=== PATIENT | female | born 1960 | race Caucasian/White ===

== ENCOUNTER 2017-12-10 06:46 | Outpatient (CLI) | payer BC ==
[~2017-12-10] VITALS: Ht 157.5 cm; Wt 114.3 kg
[2017-12-10] MEDS ORDERED: CALC600T12 PO (12:31)
[2017-12-10] MEDS ORDERED: FERR-84 PO (12:31)
[2017-12-10] MEDS ORDERED: ATOR20TA66 PO (12:31)
[2017-12-10] MEDS ORDERED: CITA20TA9 PO (12:31)
[2017-12-10] MEDS ORDERED: HYDR25TA4 PO (12:31)
[2017-12-10] MEDS ORDERED: OMEP40CA36 PO (12:31)
== END 2017-12-10 12:34 | disposition home or self-care (01) ==
LOC: PREOP 06:46
PROVIDERS: ATTEND Internal Medicine
DX: Z01.818 Encounter for other preprocedural examination (principal)

== ENCOUNTER 2017-12-12 09:12 | Day surgery (SDC) | payer BC ==
--- NOTE | 2017-12-10 05:02 | HISTORY AND PHYSICAL ---
DATE OF SERVICE: COLONOSCOPY HISTORY AND PHYSICAL DATE OF ADMISSION: 12/12/2017. HISTORY OF PRESENT ILLNESS: The patient is a 56-year-old white female referred by Dr. Marina for her first screening colonoscopy. She believes that she had one grandfather diagnosed with the colon cancer at the age of 67 and possibly one aunt with colon cancer as well on her father's side. She reports that she feels well. She has had no bowel habit change. Denies abdominal pain, bright red blood per rectum, melena, dysphagia or indigestion symptoms. PAST MEDICAL HISTORY: Significant for hyperlipidemia, hypertension, gastroesophageal reflux and depression. MEDICATIONS ON ADMISSION: Include omeprazole 40 mg daily, atorvastatin 20 mg daily, citalopram 20 mg daily and hydrochlorothiazide 25 mg daily. She takes 325 mg iron tab daily and calcium citrate daily. PAST SURGICAL HISTORY: Significant for two C-sections. She had cholecystectomy around 1999 and following that had ventral hernia repair. FAMILY HISTORY: As noted in the HPI. SOCIAL HISTORY: She is employed with no past smoking or drinking history. PHYSICAL EXAMINATION: GENERAL: Reveals a well-appearing white female in no acute distress. She is 252 pounds and roughly 5 feet 6 inches tall. VITAL SIGNS: Blood pressure 110/80, heart rate 72 and regular. HEENT: Unremarkable. Sclerae are nonicteric. Oral cavity reveals a Mallampati class 3 oropharyngeal configuration without erythema or exudate. NECK: Revealed no JVD, adenopathy or bruits. CHEST: Clear to auscultation. CARDIOVASCULAR: Reveals a regular rate and rhythm without murmur, S3 or S4. ABDOMEN: Soft, supple without mass, organomegaly or tenderness although body habitus diminishes sensitivity of manual examination. Bowel sounds are positive. No bruits are noted. EXTREMITIES: Reveal no cyanosis, clubbing or edema. ASSESSMENT: The patient was set up for screening colonoscopy on 12/12/2017. Prep instructions with Suprep kit were given and questions were answered. I thank you for the referral of this pleasant lady. In evaluating electronic medical record, 40 minutes of my personal care time was spent and another 15 minutes of office staff time going over the procedure. Prep instructions and setting up colonoscopy. Job ID: [id number] DocumentID: [id number] Dictated Date: 12/09/2017 12:11:30 Field Services Director Date: 12/09/2017 12:33:27 Dictated By: CHELA IRIZARRY MD MTDD
[~2017-12-12] VITALS: Ht 157.5 cm; Wt 114.3 kg
[~2017-12-12 09:12] MED LIST: ATOR20TA66 PO; CALC600T12 PO; CITA20TA9 PO; FERR-84 PO; HYDR25TA4 PO; OMEP40CA36 PO
--- OUTSIDE RECORDS SUMMARY | 2017-12-12 09:15 | XMS REPORT | Continuity of Care Document ---
Author Author [facility] Organization [facility] Address Unknown Phone Unavailable Allergies There is no data. Medications There is no data. Problems Date Dx Coded Attending Type Code Diagnosis Diagnosed By 12/15/2014 Ot 611.72 12/15/2014 Ot V76.12 12/15/2014 Ot 610.1 12/15/2014 Ot 433.10 12/15/2014 FRANKY CLEANING MD, Ot V76.12 12/15/2014 FRANKY CLEANING MD, Ot 793.80 12/19/2014 FRANKY CLEANING MD, Ot Z12.31 12/19/2014 FRANKY CLEANING MD, Ot Z13.820 12/27/2014 FRANKY CLEANING MD, Ot Z12.31 12/27/2014 FRANKY CLEANING MD, Ot Z13.820 2015 Ot 433.10 CAROTID ARTERY OCCLUSION W O CEREBRAL IN 2015 FRANKY CLEANING MD, Ot V76.12 OTH SCREEN MAMMO-MALIGN NEOPLASM OF HANH 2015 FRANKY CLEANING MD, Ot 793.80 UNSPEC ABNORMAL MAMMOGRAM 2015 FRANKY CLEANING MD, Ot Z12.31 ENCNTR SCREEN MAMMOGRAM FOR MALIGNANT NE 2015 FRANKY CLEANING MD, Ot Z13.820 ENCOUNTER FOR SCREENING FOR OSTEOPOROSIS 12/19/2015 FRANKY CLEANING MD, Ot Z12.31 ENCNTR SCREEN MAMMOGRAM FOR MALIGNANT NE 12/20/2015 FRANKY CLEANING MD, Ot Z12.31 ENCNTR SCREEN MAMMOGRAM FOR MALIGNANT NE 12/27/2015 FRANKY CLEANING MD, Ot Z12.31 ENCNTR SCREEN MAMMOGRAM FOR MALIGNANT NE 01/17/2017 FRANKY CLEANING MD, Ot Z12.31 ENCNTR SCREEN MAMMOGRAM FOR MALIGNANT NE 01/17/2017 FRANKY CLEANING MD, Ot Z78.0 ASYMPTOMATIC MENOPAUSAL STATE Procedures There is no data. Results There is no data. Encounters ACCT No. Visit Date/Time Discharge Status Pt. Type Provider Facility Loc./Unit Complaint [id number] 01/02/2017 08:08:00 01/02/2017 23:59:59 CLS Outpatient FRANKY CLEANING MD [facility] RAD SCREENING Z78.0 [id number] 11/18/2016 15:49:00 11/18/2016 23:59:59 CLS Preadmit FRANKY CLEANING MD [facility] RAD Z78.0 [id number] 2015 07:32:00 2015 23:59:59 CLS Outpatient FRANKY CLEANING MD [facility] RAD SCREENING [id number] 12/15/2014 08:58:00 12/15/2014 23:59:59 CLS Outpatient FRANKY CLEANING MD [facility] RAD SCREENING,OSTEOPROSIS [id number] 10/07/2012 13:23:00 10/07/2012 23:59:59 CLS Outpatient FRANKY CLEANING MD [facility] RAD ABN MAMMO [id number] 09/25/2012 09:24:00 09/25/2012 23:59:59 CLS Outpatient FRANKY CLEANING MD [facility] RAD SCREENING [id number] 01/05/2018 09:00:00 PEN Preadmit JAD RIVERA APRN [facility] RAD SCREENING [id number] 12/12/2017 11:00:00 PEN Preadmit CHELA IRIZARRY MD [facility] ENDO SCREENING [id number] 05/09/2011 15:12:00 Document Registration [id number] 11/01/2009 09:02:00 Document Registration [id number] 10/31/2009 07:11:00 Document Registration
[2017-12-12] MEDS ORDERED: D5 LR IV SOLUTION 1,000 ML IV STA (09:28)
[2017-12-12] MEDS ORDERED: D5 LR IV SOLUTION 1,000 ML IV ONE (09:29)
[2017-12-12] MEDS ORDERED: fentaNYL INJECTION 100 MCG/2 ML AMP IVP ONE (09:30)
[2017-12-12] MEDS ORDERED: LIDOCAINE JELLY 2% 6 ML SYRINGE MM PRN (09:30)
[2017-12-12] MEDS ORDERED: MIDAZOLAM 2 MG/2 ML (VERSED) VIAL IVP ONE (09:30)
[2017-12-12 10:03] VITALS: BP 130/66
--- NOTE | 2017-12-12 10:19 | Pre-Op Note & Conscious Sedat ---
Pre-Operative Progress Note H&P Reviewed The H&P was reviewed, patient examined and no changes noted. Date H&P Reviewed: Dec 12, 2017 Time H&P Reviewed: 10:10 Conscious Sedation Pre-Proced ASA Score 2 For ASA 3 and 4: Consider anesthesia and medical clearance. Also, for patients with a history of failed moderate sedation consider anesthesia. Airway Lungs Heart ASA score ASA 1: a normal healthy patient ASA 2: a patient with a mild systemic disease (mid diabetes, controlled hypertension, obesity ASA 3: a patient with a severe systemic disease that limits activity (angina , COPD, prior Myocardial infarction) ASA 4: a patient with an incapacitating disease that is a constant threat to life (CHF, renal failure) ASA 5: a moribund patient not expected to survive 24 hrs. (ruptured aneurysm) ASA 6: a declared brain patient whose organs are being harvested. For emergent operations, add the letter E after the classification Mallampati Classification Grade 3 Sedation Plan Analgesia, Amnesia, Plan communicated to team members, Discussed options with patient/fam, Discussed risks with patient/fam The patient is an appropriate candidate to undergo the planned procedure, sedation, and anesthesia. The patient immediately re-assessed prior to indication. CHELA IRIZARRY MD Dec 12, 2017 10:19
[2017-12-12] MEDS ORDERED: LIDOCAINE JELLY 2% 6 ML SYRINGE ONE (10:21)
[2017-12-12] MEDS ORDERED: fentaNYL INJECTION 100 MCG/2 ML AMP ONE (10:21)
[2017-12-12] MEDS ORDERED: MIDAZOLAM 2 MG/2 ML (VERSED) VIAL ONE ×2 (10:22)
[2017-12-12 11:05] VITALS: BP 103/59
[2017-12-12 11:35] VITALS: BP 106/62
[2017-12-12 11:45] VITALS: BP 106/62
--- NOTE | 2017-12-12 18:00 | OPERATIVE REPORT ---
DATE OF SERVICE: COLONOSCOPY SUMMARY REFERRING PHYSICIAN: Anup Marina MD. The patient was placed in the left lateral decubitus position. Prior to undergoing colonoscopy, digital rectal evaluation was performed. Anal sphincter tone was normal and the perianal reflexes intact. Digital examination was compatible with an anterior rectocele. There is no pocketing of stool and no other abnormalities, no additional inspection of the anal canal or distal rectal vault. The colonoscope was then inserted into the rectum and under direct visualization advanced to the cecum. The cecum was identified by identification of the ileocecal valve and cecal strap. Photographic documentation was obtained. Careful inspection was made as the colonoscope was withdrawn. The patient tolerated the procedure well. FINDINGS: There was no evidence for internal or external hemorrhoids. Several small 1 mm hyperplastic appearing polyps were noted in the rectum. The largest most outside sales account representative one was biopsied and ablated and submitted for histopathology. Remainder of the rectum was unremarkable. Several small sigmoid diverticulum were present without evidence of diverticulitis. No other sigmoid colonic abnormalities were appreciated. The descending colon, splenic flexure, transverse colon, hepatic flexure, ascending colon and cecum were unremarkable. ASSESSMENT: 1. Mild diverticular disease involving the sigmoid colon was present without evidence for diverticulitis. 2. One diminutive hyperplastic appearing polyp was removed from the distal rectum. Considering family history would advocate consideration for repeat screening colonoscopy in 5 years. 3. Digital evaluation of the rectum was compatible with an anterior rectocele. Thank you for the referral of this pleasant lady. Job ID: [id number] DocumentID: [id number] Dictated Date: 12/12/2017 11:02:23 Store Person Date: 12/12/2017 17:59:57 Dictated By: CHELA IRIZARRY MD MTDD
== END 2017-12-12 11:45 | disposition home or self-care (01) ==
LOC: ENDO 09:12
PROVIDERS: ATTEND Internal Medicine
DX: Z12.11 Encounter for screening for malignant neoplasm of colon (principal); K62.1 Rectal polyp; K57.30 Diverticulosis of large intestine without perforation or abscess without bleeding; Z80.0 Family history of malignant neoplasm of digestive organs; I10 Essential (primary) hypertension; K21.9 Gastro-esophageal reflux disease without esophagitis; Z79.899 Other long term (current) drug therapy
CPT/HCPCS: 88305

== ENCOUNTER → 2018-01-05 | Outpatient (CLI) | payer BC ==
--- NOTE | 2018-01-05 09:28 | Diagnostic Imaging Report ---
Indication: Routine screening. Comparison is made with prior mammogram from 01/02/2017 and 12/18/2015. 2-D and 3-D bilateral screening mammography was performed with CAD. Both breasts are heterogeneously dense, limiting the sensitivity of mammography. Nodular densities in the outer right breast appear stable and consistent with benign etiologies. No dominant mass or malignant-appearing microcalcifications are seen. The axillae are unremarkable. Impression: BI-RADS category 2 No mammographic features suspicious for malignancy are identified. ACR BI-RADS Category 2: Benign findings. Result letter will be mailed to the patient. Note: At least 10% of breast cancer is not imaged by mammography. Dictated by: Dictated on workstation # [id number]
== END ==
LOC: RAD 08:44
PROVIDERS: ATTEND Nurse Practitioner Family
DX: Z12.31 Encounter for screening mammogram for malignant neoplasm of breast (principal)
CPT/HCPCS: 77067

== ENCOUNTER → 2019-01-19 | Outpatient (CLI) | payer BC ==
--- NOTE | 2019-01-19 09:07 | Diagnostic Imaging Report ---
INDICATION: Postmenopausal female. COMPARISON: 01/02/2017. FINDINGS: AP Spine L2-L4: [BMD (g/cm2): 1.199] [T-Score: 0.0] [Z-Score: -0.3] [BMD Previous: 1.285] [BMD % Change: -6.7] LT Hip Neck: [BMD (g/cm2): 0.843] [T-Score: -1.4] [Z-Score: -1.1] LT Hip Total: [BMD (g/cm2):0.910] [T-Score:-0.8] [Z-Score: -0.9] [BMD Previous: 0.913] [BMD % Change: -0.3] RT Hip Neck: [BMD (g/cm2):0.774] [T-Score:-1.9] [Z-Score:-1.6] RT Hip Total: [BMD (g/cm2):0.888] [T-score:-0.9] [Z-Score:-1.1] [BMD Previous:0.894] [BMD % Change:-0.7] *Indicates significant change from prior examination based on 95% confidence level. World Health Organization criteria for BMD interpretation classify patients as Normal (T-score at or above -1.0), Osteopenic (T-score between -1.0 and -2.5) or Osteoporotic (T-score at or below -2.5). LIMITATIONS AND MODIFICATION: Degenerative changes in the lumbar spine may falsely elevate bone density. FRACTURE RISK (FRAX SCORE): The ten year probability of (%): Major Osteoporotic Fracture: [6.6] Hip Fracture: [0.7] IMPRESSION: 1. Osteopenia (Low bone mass). 2. No statistically significant change in bone mineral density since prior examination. 3. See below National Osteoporosis Foundation guidelines on when to potentially initiate pharmacologic therapy. Based on the National Osteoporosis Foundation Guidelines, pharmacologic treatment should be initiated in any of the following, unless clinical conditions suggest otherwise: * Any patient with prior fragility fracture of the hip or vertebrae. A spine fracture indicates 5X risk for subsequent spine fracture and 2X risk for subsequent hip fracture. * Osteoporosis (T-score <-2.5). * Postmenopausal women and men age 50 and older with low bone mass/osteopenia (T-score between -1.0 and -2.5) by DXA and 10-year major osteoporotic fracture greater than 20% or a 10-year probability of hip fracture greater than 3%. These fracture risks are supplied above in the FRAX score, if applicable. * Clinician judgement and/or patient preferences may indicate treatment for people with 10-year fracture probabilities above or below these levels. Dictated by: Dictated on workstation # [id number]
--- NOTE | 2019-01-19 10:58 | Diagnostic Imaging Report ---
EXAMINATION: Digital mammogram INDICATION: Bilateral screening This study was compared to the prior exams of 01/05/2018, 01/02/2017 and 12/18/2015. At this time there are no current complaints. The current study was also evaluated with a Computer Aided Detection (CAD) system. FINDINGS: The fibroglandular tissue in both breasts is heterogeneously dense. This does limit the sensitivity of this exam. Overall, there does not appear to have been any significant change when compared to the prior study. No primary or secondary sign of malignancy is noted. IMPRESSION: There is no radiographic evidence for malignancy. ACR BI-RADS Category 1: Negative. Result letter will be mailed to the patient. Note: At least 10% of breast cancer is not imaged by mammography. Dictated by: Dictated on workstation # [id number]
== END ==
LOC: RAD 07:40
PROVIDERS: ATTEND Obstetrics & Gynecology
DX: Z12.31 Encounter for screening mammogram for malignant neoplasm of breast (principal); M85.89 Other specified disorders of bone density and structure, multiple sites; Z78.0 Asymptomatic menopausal state
CPT/HCPCS: 77067; 77080

== ENCOUNTER → 2020-01-24 | Outpatient (CLI) | payer BC ==
[~2020-01-24] MED LIST changes: -CALC600T12 PO; +CLC600T PO; +OMEP40CA27 PO; -OMEP40CA36 PO
--- NOTE | 2020-01-24 11:35 | Diagnostic Imaging Report ---
INDICATION: Routine screening. Comparison is made with prior mammogram of 01/19/2019 and 01/05/2018. 2-D and 3-D bilateral screening mammography was performed with CAD. Both breasts are heterogeneously dense, limiting the sensitivity of mammography. There are circumscribed nodules in the outer right breast which appear stable. No spiculated mass or malignant appearing microcalcifications are seen. Axillae are unremarkable. IMPRESSION: BI-RADS Category 2 No mammographic features suspicious for malignancy identified. ACR BI-RADS Category 2: Benign findings. Result letter will be mailed to the patient. Note: At least 10% of breast cancer is not imaged by mammography. Dictated by: Dictated on workstation # [id number]
== END ==
LOC: RAD 07:30
PROVIDERS: ATTEND Obstetrics & Gynecology
DX: Z12.31 Encounter for screening mammogram for malignant neoplasm of breast (principal)
CPT/HCPCS: 77063; 77067

== ENCOUNTER → 2020-04-21 | Outpatient (CLI) | payer BC | LOC: LABNPT 08:27 | PROVIDERS: ATTEND Family Medicine | DX: Z20.822 Contact with and (suspected) exposure to COVID-19 (principal) | CPT/HCPCS: 87635 ==

== ENCOUNTER 2020-04-24 20:32 | Outpatient (CLI) | payer BC | END 2020-04-25 06:10 | disposition home or self-care (01) | LOC: SLEEP 20:32 | PROVIDERS: ATTEND Family Medicine | DX: G47.33 Obstructive sleep apnea (adult) (pediatric) (principal) | CPT/HCPCS: 95811 ==

== ENCOUNTER → 2020-07-18 | Outpatient (CLI) | payer BC ==
[~2020-07-18] MED LIST changes: +CALC600T91 PO; -CLC600T PO
--- NOTE | 2020-07-18 08:29 | Diagnostic Imaging Report ---
INDICATION: ELEVATED LIVER ENZYMES TECHNIQUE: Multiple grayscale sonographic images were obtained of the right upper quadrant of the abdomen. CORRELATION STUDY: None FINDINGS: LIVER: There is diffusely increased echotexture within the visualized portions of the liver. There is normal, hepatopedal direction of flow within the main portal vein. Liver length 15.1 cm. GALLBLADDER: Cholecystectomy. COMMON BILE DUCT: Nondilated at 0.9 cm. PANCREAS: Visualized portions appearing unremarkable. AORTA/IVC: Not well visualized. RIGHT KIDNEY: 11.2 x 5.0 x 5.0 cm. No hydronephrosis. OTHER: None. IMPRESSION: 1. Likely hepatic steatosis with normal-sized liver. 2. Post cholecystectomy changes. Dictated by: Dictated on workstation # [id number]
== END ==
LOC: RAD 07:00
PROVIDERS: ATTEND Family Medicine
DX: R94.5 Abnormal results of liver function studies (principal); Z90.49 Acquired absence of other specified parts of digestive tract
CPT/HCPCS: 76705

== ENCOUNTER → 2021-01-30 | Outpatient (CLI) | payer BC ==
[~2021-01-30] MED LIST changes: -OMEP40CA27 PO; +OMEP40CA6 PO
--- NOTE | 2021-01-30 08:52 | Diagnostic Imaging Report ---
INDICATION: Postmenopausal COMPARISON: This study was compared to the prior exam of 01/19/2019. FINDINGS: The bone density of the spine and hips and the femoral necks was measured. The total T score for the spine is -0.7. On the prior exam the T score is 0.0. The total T score for the left hip is -08 and for the right hip -0.7. On the prior exam the respective T scores were -0.8 and -0.9. The T score for the left femoral neck is -1.6 and for the right femoral neck -1.9. Previously the T score is -1.4 and -1.9. AP Spine L1-L4: [BMD (g/cm2): 1.113] [T-Score: -0.7] [Z-Score: -0.9] [BMD Previous: 1.199] [BMD % Change: -7.2] LT Hip Neck: [BMD (g/cm2): 0.814] [T-Score: -1.6] [Z-Score: -1.2] LT Hip Total: [BMD (g/cm2):0.904] [T-Score:-0.8] [Z-Score: -0.8] [BMD Previous: 0.910] [BMD % Change: -0.7] RT Hip Neck: [BMD (g/cm2):0.767] [T-Score:-1.9] [Z-Score:-1.6] RT Hip Total: [BMD (g/cm2):0.920] [T-score:-0.7] [Z-Score:-0.7] [BMD Previous:0.888] [BMD % Change:3.6] *Indicates significant change from prior examination based on 95% confidence level. World Health Organization criteria for BMD interpretation classify patients as Normal (T-score at or above -1.0), Osteopenic (T-score between -1.0 and -2.5) or Osteoporotic (T-score at or below -2.5). LIMITATIONS AND MODIFICATION: None. FRACTURE RISK (FRAX SCORE): The ten year probability of (%): Major Osteoporotic Fracture: [7.2] Hip Fracture: [0.8] IMPRESSION: 1. Overall, there has been no significant change since the prior exam. There has been a slight decrease in the bone mineral density of the spine and a slight increase in the bone mineral density of the right hip. All of the T score values remain within normal limits however. 2. There is still osteopenia of the femoral necks. This is essentially no different than on the prior study. 3. See below National Osteoporosis Foundation guidelines on when to potentially initiate pharmacologic therapy. Based on the National Osteoporosis Foundation Guidelines, pharmacologic treatment should be initiated in any of the following, unless clinical conditions suggest otherwise: * Any patient with prior fragility fracture of the hip or vertebrae. A spine fracture indicates 5X risk for subsequent spine fracture and 2X risk for subsequent hip fracture. * Osteoporosis (T-score <-2.5). * Postmenopausal women and men age 50 and older with low bone mass/osteopenia (T-score between -1.0 and -2.5) by DXA and 10-year major osteoporotic fracture greater than 20% or a 10-year probability of hip fracture greater than 3%. These fracture risks are supplied above in the FRAX score, if applicable. * Clinician judgement and/or patient preferences may indicate treatment for people with 10-year fracture probabilities above or below these levels. Dictated by: Dictated on workstation # [id number]
--- NOTE | 2021-01-30 12:53 | Diagnostic Imaging Report ---
INDICATION: Routine screening. COMPARISON: 01/24/2020 and 01/19/2019. TECHNIQUE: 2D and 3D bilateral screening mammography was performed with CAD. FINDINGS: Scattered fibroglandular densities are identified bilaterally. Benign nodules in the outer right breast are stable. No spiculated mass or malignant-appearing microcalcifications are seen. There are benign calcifications present. The axillae are unremarkable. IMPRESSION: No mammographic features suspicious for malignancy are identified. ACR BI-RADS Category 2: Benign findings. Result letter will be mailed to the patient. Note: At least 10% of breast cancer is not imaged by mammography. Dictated by: Dictated on workstation # [id number]
== END ==
LOC: RAD 08:00
PROVIDERS: ATTEND Obstetrics & Gynecology
DX: Z12.31 Encounter for screening mammogram for malignant neoplasm of breast (principal); M85.88 Other specified disorders of bone density and structure, other site; Z78.0 Asymptomatic menopausal state
CPT/HCPCS: 77063; 77067; 77080

== ENCOUNTER → 2022-01-31 | Outpatient (CLI) | payer BC ==
--- NOTE | 2022-01-31 12:35 | Diagnostic Imaging Report ---
Indication: Routine screening. Comparison is made with prior mammograms from 01/30/2021 and 01/24/2020. 2-D and 3-D bilateral screening mammography was performed with CAD. Scattered fibroglandular densities are identified bilaterally. The parenchymal pattern is stable. The nodules on the right breast are stable. No new mass or malignant-appearing microcalcifications are seen. Axillae are unremarkable. IMPRESSION: BI-RADS Category 2 No mammographic features suspicious for malignancy are identified. ACR BI-RADS Category 2: Benign findings. Result letter will be mailed to the patient. Note: At least 10% of breast cancer is not imaged by mammography. Dictated by: Dictated on workstation # [id number]
== END ==
LOC: RAD 07:44
PROVIDERS: ATTEND Obstetrics & Gynecology
DX: Z12.31 Encounter for screening mammogram for malignant neoplasm of breast (principal)
CPT/HCPCS: 77063; 77067